=== PATIENT | female | born 1950 | race African-American/Black ===

== ENCOUNTER 2016-12-15 06:54 | Inpatient (IN) | payer OTHER ==
--- NOTE | 2016-12-15 08:03 | PDOC ---
History of Present Illness - General Chief Complaint: Chest Pain Stated Complaint: CHEST PAIN Time Seen by Provider: 12/15/16 07:18 History Source: Patient Exam Limitations: No Limitations Past History - Past Medical History Allergies/Adverse Reactions: Allergies Allergy/AdvReac Type Severity Reaction Status Date / Time No Known Allergies Allergy Verified 12/15/16 07:10 Home Medications: Ambulatory Orders Amlodipine/Valsartan [Amlodipine-Valsartan 5-160 mg] 1 each PO DAILY 12/15/16 Amlodipine/Valsartan [Exforge 5-160 mg Tablet] 1 tab PO DAILY 12/15/16 Amlodipine/Valsartan/Hcthiazid [Pesik-Nwcoa-Hohb 10-320-25 mg] 1 each PO DAILY 12/15/16 Atorvastatin Ca [Lipitor] 20 mg PO HS 12/15/16 Carvedilol [Coreg -] 6.25 mg PO BID 12/15/16 FA/Vit Bcomp,C/Zinc/Vitamin D3 [Dialyvite 800-Ultra D Tablet] 1 each PO DAILY Furosemide [Lasix] 80 mg PO DAILY 12/15/16 Insulin Glargine,Hum.rec.anlog [Lantus Solostar PEN (NF)] 15 units SQ HS Methimazole [Tapazole -] 10 mg PO DAILY 12/15/16 Metoprolol Succinate [Toprol Xl -] 50 mg PO DAILY 12/15/16 Paroxetine HCl [Paxil -] 10 mg PO DAILY 12/15/16 Anemia: Yes (iron deficiency) Asthma: No Cancer: No Hx Myocardial Infarction: No CVA: No Diabetes: Yes (type 2) Disorders: Yes (end stage renal disease/dialysis) HTN: Yes Hypercholesterolemia: Yes HIV: No Other medical history: hyperparathyroidism, vitamin d deficiency Comment:: 12/15/16 08:18 66 year old female with PMH of HTN, HLD, DM, ESRD (M,W,F) presenting with chest pain starting at 5:30 AM. She describes the chest pain as a - Immunization History Immunization Up to Date: Yes - Psycho/Social/Smoking Cessation Hx Suicidal Ideation: No Smoking History: Never smoked Have you smoked in the past 12 months: No Information on smoking cessation initiated: No Hx Alcohol Use: No Drug/Substance Use Hx: No Substance Use Type: None *Physical Exam - Vital Signs Last Vital Signs Temp Pulse Resp BP Pulse Ox 97.6 F 71 18 158/70 100 12/15/16 07:03 12/15/16 07:03 12/15/16 07:03 12/15/16 07:03 12/15/16 07:03
[2016-12-15] MEDS ORDERED: ASPIRIN 81 MG CHEWABLE TABLETS PO ONE (08:12)
[2016-12-15 08:29] LABS: BASOPHIL 1.1 % (0-2.0); EOSINOPHIL 4.7 % (0-4.5); MCH 30.3 pg (25.7-33.7); MCHC 33.2 g/dl (32.0-36.0); MEAN CELL VOLUME 91.4 fl (80-96); MEAN PLT VOLUME 8.3 fl (7.5-11.1); NEUTROPHILS 68.5 % (42.8-82.8); PLATELET COUNT 123 K/MM3 (134-434); RDW 14.7 % (11.6-15.6); WHITE BLOOD COUNT 5.9 K/mm3 (4.0-10.0)
--- NOTE | 2016-12-15 08:40 | PDOC ---
History of Present Illness <Brent Chase - Last Filed: 12/15/16 09:49> - General History Source: Patient Exam Limitations: No Limitations - History of Present Illness Initial Comments: 12/15/16 08:29 66 year old female with PMH of HTN, HLD, DM, ESRD (M,W,F) presenting with chest pain starting at 5:30 AM. She describes the chest pain as an 8/10 non radiating left sided inframammary pain that co-presents with diaphoresis and shortness of breath. She denies nausea, vomiting, cough, or pre-syncopal sensation. The pain was relieved by dialysis cessation (after 20 minutes) and oxygen administration with complete relief noted upon presentation to the ED. Denies current exacerbating factors but it is historically positional. She received no medications for this pain today. Of note, this pain occurred during the beginning of her dialysis session during which she experienced an episode of hypotension to the mid 80s systolic. She was then told by the nurses to come to the ED. She has had this pain in the past , also during dialysis but typically occurring at the end of her sessions and without apparent hypotension. The pain is typically positional and relieved by positional adjustment. She denies nausea , vomiting, diarrhea, palpitations, pre-syncopal sensation, headache, paresthesias, cough, or other sick symptoms. Her PCP is Dr. Cayden Beyer and she takes her medications as scheduled but is currently unsure of the med names or dosages. <Stevie Valerio - Last Filed: 12/15/16 11:23> <Chrissy Pineda - Last Filed: 12/15/16 15:34> - General Chief Complaint: Chest Pain Stated Complaint: CHEST PAIN Time Seen by Provider: 12/15/16 07:18 Past History <Brent Chase - Last Filed: 12/15/16 09:49> - Travel Traveled outside of the country in the last 30 days: No - Past Medical History Anemia: Yes (iron deficiency) Diabetes: Yes (type 2) Disorders: Yes (end stage renal disease/dialysis) Other medical history: hyperparathyroidism, vitamin d deficiency - Immunization History Immunization Up to Date: Yes - Psycho/Social/Smoking Cessation Hx Suicidal Ideation: No Smoking History: Never smoked Have you smoked in the past 12 months: No Information on smoking cessation initiated: No Hx Alcohol Use: No Drug/Substance Use Hx: No Substance Use Type: None <Stevie Valerio - Last Filed: 12/15/16 11:23> <EdwinChrissy - Last Filed: 12/15/16 15:34> - Past Medical History Allergies/Adverse Reactions: Allergies Allergy/AdvReac Type Severity Reaction Status Date / Time No Known Allergies Allergy Verified 12/15/16 07:10 Home Medications: Ambulatory Orders Amlodipine/Valsartan [Amlodipine-Valsartan 5-160 mg] 1 each PO DAILY 12/15/16 Amlodipine/Valsartan [Exforge 5-160 mg Tablet] 1 tab PO DAILY 12/15/16 Amlodipine/Valsartan/Hcthiazid [Zxpch-Nrfoo-Hgsi 10-320-25 mg] 1 each PO DAILY 12/15/16 Atorvastatin Ca [Lipitor] 20 mg PO HS 12/15/16 Carvedilol [Coreg -] 6.25 mg PO BID 12/15/16 FA/Vit Bcomp,C/Zinc/Vitamin D3 [Dialyvite 800-Ultra D Tablet] 1 each PO DAILY Furosemide [Lasix] 80 mg PO DAILY 12/15/16 Insulin Glargine,Hum.rec.anlog [Lantus Solostar PEN (NF)] 15 units SQ HS Methimazole [Tapazole -] 10 mg PO DAILY 12/15/16 Metoprolol Succinate [Toprol Xl -] 50 mg PO DAILY 12/15/16 Paroxetine HCl [Paxil -] 10 mg PO DAILY 12/15/16 Review of Systems - Review of Systems Constitutional: Yes: Diaphoresis. No: Chills, Fever, Loss of Appetite, Malaise , Night Sweats, Weakness HEENTM: No: Eye Pain, Blurred Vision, Tearing, Recent change in vision Respiratory: Yes: Shortness of Breath, SOB with Exertion. No: Cough, Orthopnea Cardiac (ROS): Yes: Chest Pain, Chest Tightness. No: Edema, Irregular Heart Rate, Lightheadedness, Palpitations, Syncope ABD/GI: No: Abdominal Distended, Constipated, Diarrhea, Nausea Musculoskeletal: No: Back Pain, Neck Pain, Joint Stiffness Neurological: No: Headache, Numbness, Unsteady Gait Psychiatric: No: Anxiety, Depression Endocrine: Yes: Unexplained Weight Loss <Stevie Valerio - Last Filed: 12/15/16 11:23> *Physical Exam - Vital Signs Last Vital Signs Temp Pulse Resp BP Pulse Ox 98.6 F 76 16 177/80 98 12/15/16 08:29 12/15/16 08:29 12/15/16 08:29 12/15/16 08:29 12/15/16 08:29 <SalvatoreBrentjustin Henrye - Last Filed: 12/15/16 09:49> - Vital Signs Last Vital Signs Temp Pulse Resp BP Pulse Ox 97.6 F 71 18 158/70 100 12/15/16 07:03 12/15/16 07:03 12/15/16 07:03 12/15/16 07:03 12/15/16 07:03 - Physical Exam General Appearance: Yes: Other (Inno apparent distress) HEENT: positive: Hearing Grossly Normal. negative: Scleral Icterus (R), Scleral Icterus (L), Nasal Congestion, Excessive drooling Neck: negative: Tender, Rigid Respiratory/Chest: positive: Lungs Clear, Normal Breath Sounds. negative: Chest Tender, Respiratory Distress, Accessory Muscle Use, Labored Respiration, Rhonchi, Wheezing Cardiovascular: positive: Regular Rhythm, Regular Rate, S1, S2, Murmur ( Holosystolic murmur), Systolic Murmur, Other. negative: Edema, JVD, Bradycardia , Tachycardia Gastrointestinal/Abdominal: positive: Normal Bowel Sounds, Flat, Soft. negative : Tender, Organomegaly, Pulsatile Mass, Increased Bowel Sounds, Decreased BS Extremity: positive: Normal Capillary Refill. negative: Tender, Pedal Edema, Swelling Neurologic: positive: Fully Oriented, Alert, Normal Mood/Affect <Jordan Valerionohemy - Last Filed: 12/15/16 11:23> - Vital Signs Last Vital Signs Temp Pulse Resp BP Pulse Ox 98.2 F 72 16 188/69 97 12/15/16 10:54 12/15/16 10:54 12/15/16 10:54 12/15/16 10:54 12/15/16 10:54 <Chrissy Pineda - Last Filed: 12/15/16 15:34> Heart Score/ECG Review - History History: Moderately suspicious - Electrocardiogram EKG: Normal - Age Age: >/= 65 - Risk Factors Risk Factors Heart Score: Yes Hx Hypercholesterolemia, Yes Hx Hypertension, Yes Hx Diabetes, Yes Smoking History Based on the list above the patient has:: >/=3 risk factors or Hx atherosclerotic disease - Troponin Troponin: </= normal limit (ECG not showing an concern for ST elevation or abnormal pathology) - Score Heart Score - Total: 5 <Stevie Valerio - Last Filed: 12/15/16 11:23> ED Treatment Course - LABORATORY CBC & Chemistry Diagram: 12/15/16 08:23 12/15/16 08:23 - ADDITIONAL ORDERS Additional order review: Laboratory Results 12/15/16 12/15/16 08:23 08:23 Sodium 140 Potassium 4.7 Chloride 102 Carbon Dioxide 24 Anion Gap 14 BUN 67 H D Creatinine 10.6 H* D Creat Clearance w eGFR 3.63 Random Glucose 149 H Lactic Acid 0.8 Calcium 8.8 Total Bilirubin 0.3 AST 34 ALT 48 Alkaline Phosphatase 139 H Creatine Kinase 76 Troponin I 0.02 Total Protein 7.1 Albumin 3.7 12/15/16 08:23 RBC 3.73 MCV 91.4 MCHC 33.2 RDW 14.7 MPV 8.3 Neutrophils % 68.5 Lymphocytes % 19.5 Monocytes % 6.2 Eosinophils % 4.7 H Basophils % 1.1 - Medications Given in the ED: ED Medications Discontinued Medications Generic Name Dose Route Start Last Admin Trade Name Freq PRN Reason Stop Dose Admin Aspirin 324 mg 12/15/16 08:12 12/15/16 08:24 Asa - PO 12/15/16 08:13 324 mg ONCE ONE Administration <Brent Chase - Last Filed: 12/15/16 09:49> - LABORATORY CBC & Chemistry Diagram: 12/15/16 08:23 12/15/16 08:23 - Medications Given in the ED: ED Medications Discontinued Medications Generic Name Dose Route Start Last Admin Trade Name Freq PRN Reason Stop Dose Admin Aspirin 324 mg 12/15/16 08:12 12/15/16 08:24 Asa - PO 12/15/16 08:13 324 mg ONCE ONE Administration <Stevie Valerio - Last Filed: 12/15/16 11:23> - LABORATORY CBC & Chemistry Diagram: 12/15/16 08:23 12/15/16 08:23 - ADDITIONAL ORDERS Additional order review: Laboratory Results 12/15/16 12/15/16 08:23 08:23 Sodium 140 Potassium 4.7 Chloride 102 Carbon Dioxide 24 Anion Gap 14 BUN 67 H D Creatinine 10.6 H* D Creat Clearance w eGFR 3.63 Random Glucose 149 H Lactic Acid 0.8 Calcium 8.8 Total Bilirubin 0.3 AST 34 ALT 48 Alkaline Phosphatase 139 H Creatine Kinase 76 Troponin I 0.02 Total Protein 7.1 Albumin 3.7 12/15/16 08:23 RBC 3.73 MCV 91.4 MCHC 33.2 RDW 14.7 MPV 8.3 Neutrophils % 68.5 Lymphocytes % 19.5 Monocytes % 6.2 Eosinophils % 4.7 H Basophils % 1.1 - RADIOLOGY Radiology Studies Ordered: Category Date Time Status CHEST X-RAY PORTABLE* [RAD] Stat Radiology 12/15/16 08:11 Completed - Medications Given in the ED: ED Medications Discontinued Medications Generic Name Dose Route Start Last Admin Trade Name Freq PRN Reason Stop Dose Admin Aspirin 324 mg 12/15/16 08:12 12/15/16 08:24 Asa - PO 12/15/16 08:13 324 mg ONCE ONE Administration <Chrissy Pineda - Last Filed: 12/15/16 15:34> Medical Decision Making - Medical Decision Making 12/15/16 09:49 Dr. Meeks who is covering for Dr. Renner was consulted regarding the patient at 9:50am [phone] <Brent Chase - Last Filed: 12/15/16 09:49> - Critical Care Time Total Critical Care Time (minutes): 60 Critical Care Statement: The care of this patient involved high complexity decision making to prevent further life threatening deterioration of the patient 's condition and/or to evalute & treat vital organ system(s) failure or risk of failure. - Medical Decision Making 12/15/16 10:55 Patient presented with chest pain concerning for ACS (SOB with diaphoresis) however non radiating, without EKG changes, one negative Troponin, and resolution of pain with cessation of dialysis and administration of oxygen. She was SATing well on RA with normal HR and RR. Her labs were WNL with exception of her creatinine but this is expected to be high. She hypertensive to 190s without symptoms most likely secondary to abbreviated dialysis session. After a conversation with Dr. Meeks, the decision was made to admit the patient with a cardiology consult for her chest pain. Her pressure remained high to 190s systolic by transfer but the patient was stable. She will need dialysis after transfer in order to obtain pressure control. 12/15/16 11:24 <Stevie Valerio - Last Filed: 12/15/16 11:23> - Medical Decision Making 12/15/16 15:32 Pt preesnts to the ED complaining of chest pain and hypotension on HD. Multiple risk factors for cardiovascular disease. EKG shows no evidence of acute ischemia, patient is asymptomatic in the ED, but given risk factors, will admit for r/o ACS. <Chrissy Pineda - Last Filed: 12/15/16 15:34> *DC/Admit/Observation/Transfer <Brent Chase - Last Filed: 12/15/16 09:49> - Discharge Dispostion Admit: Yes Decision to Admit order Date/Time: 12/15/16 09:57 12/15/16 10:51 For cardiac event rule out - Attestations Physician Attestion: 12/15/16 10:55 I, Dr. Stevie Valerio, attest that this document has been prepared under my direction and personally reviewed by me in its entirety. I further attest, that it accurately reflects all work, treatment, procedures and medical decision -making performed by me. <Stevie Valerio - Last Filed: 12/15/16 11:23> <Chrissy Pineda - Last Filed: 12/15/16 15:34> Diagnosis at time of Disposition: Chest pain Qualifiers: Chest pain type: precordial pain Qualified Code(s): R07.2 - Precordial pain - Discharge Dispostion Condition at time of disposition: Stable
[2016-12-15 08:50] LABS: ALBUMIN 3.7 g/dl (3.4-5.0); ALK PHOS 139 U/L (45-117); ANION GAP 14 (8-16); BILIRUBIN,TOTAL 0.3 mg/dL (0.2-1.0); CALCIUM 8.8 mg/dL (8.5-10.1); CO2 24 mmol/L (21-32); GLUCOSE,RANDOM 149 mg/dL (74-106); SGOT/AST 34 U/L (15-37); SGPT/ALT 48 U/L (12-78); TOT PROT 7.1 g/dl (6.4-8.2)
[2016-12-15 08:55] LABS: TROPONIN I 0.02 ng/ml (0.00-0.05)
--- NOTE | 2016-12-15 08:56 | PDOC ---
Attending Attestation - Resident Resident Name: Stevie Valerio - ED Attending Attestation I have performed the following: I have examined & evaluated the patient, Exceptions are as noted - HPI HPI: 12/15/16 08:50 pt presents to the ED with the acute onset of chest pain that began while on dialysis. Patient often has chest pain while on HD, but today her pain occurred toward the beginning instead of the end and was accompanied by hypotension. Currently chest pain free. - Physicial Exam PE: 12/15/16 08:56 Welll appearing with essentially normal exam. - Medical Decision Making 12/15/16 09:00 Given that her chest pain occurred early in HD and was accompanied by shortness of breath, I am concerned about possible NSTEMI or unstable angina. EKG shows no evidence of ischemia, but HEART score is 5 . Will check labs and cardiac enzymes, likely admit to observation for serial cardiac enzymes. Patient did not complete HD and will need HD as inpatient.
[2016-12-15 08:59] LABS: CREATININE 10.6 mg/dL (0.55-1.02)
--- NOTE | 2016-12-15 10:22 | EKG ---
Test Reason : Blood Pressure : / mmHG Vent. Rate : 075 BPM Atrial Rate : 075 BPM P-R Int : 176 ms QRS Dur : 084 ms QT Int : 400 ms P-R-T Axes : 066 015 037 degrees QTc Int : 446 ms NORMAL SINUS RHYTHM MINIMAL VOLTAGE CRITERIA FOR LVH, MAY BE NORMAL VARIANT BORDERLINE ECG NO PREVIOUS ECGS AVAILABLE Confirmed by KARRI WRIGHT MD ([id number]) on 12/15/2016 10:22:11 AM Referred By: Confirmed By:KARRI WRIGHT MD
--- NOTE | 2016-12-15 11:48 | CON.CARD ---
Consult Consult Specialty:: Cardiology Referred by:: Harjit Meeks MD Reason for Consultation:: Chest pain - History of Present Illness Chief Complaint: Chest pain History of Present Illness: 66 year old female with PMH of HTN, HLD, DM, ESRD (M,W,F) presented with chest pain characterized as starting at 5:30 AM. She describes the chest pain as an 8/ 10 non radiating left sided inframammary burning pain that co-presents with diaphoresis and shortness of breath. She denies nausea, vomiting, cough, or pre- syncopal, true syncope, palpitations, orthopnea, PND or LE edema. The pain was relieved by dialysis cessation (after 20 minutes) and oxygen administration with complete relief noted upon presentation to the ED. Denies current exacerbating factors but it is historically positional. Of note, this pain occurred during the beginning of her dialysis session during which she experienced an episode of hypotension to the mid 80s systolic and HD was interrupted. She was then told by the nurses to come to the ED. She has had this pain in the past, also during dialysis but typically occurring at the end of her sessions and without apparent hypotension. The pain is typically positional and relieved by positional adjustment. She denies nausea, vomiting, diarrhea, palpitations, pre-syncopal sensation, headache, paresthesias, cough, or other sick symptoms. Her PCP is Dr. Cayden Beyer and she takes her medications as scheduled but is currently unsure of the med names or dosages. - History Source History Provided By: Patient Limitations to Obtaining History: No Limitations - Past Medical History Cardio/Vascular: Yes: HTN Renal/: Yes: Hemodialysis - Alcohol/Substance Use Hx Alcohol Use: No - Smoking History Smoking history: Never smoked Have you smoked in the past 12 months: No Home Medications - Allergies Allergies/Adverse Reactions: Allergies Allergy/AdvReac Type Severity Reaction Status Date / Time No Known Allergies Allergy Verified 12/15/16 07:10 - Home Medications Home Medications: Ambulatory Orders Amlodipine/Valsartan [Amlodipine-Valsartan 5-160 mg] 1 each PO DAILY 12/15/16 Amlodipine/Valsartan [Exforge 5-160 mg Tablet] 1 tab PO DAILY 12/15/16 Amlodipine/Valsartan/Hcthiazid [Ntemt-Yrazt-Rphn 10-320-25 mg] 1 each PO DAILY 12/15/16 Atorvastatin Ca [Lipitor] 20 mg PO HS 12/15/16 Carvedilol [Coreg -] 6.25 mg PO BID 12/15/16 FA/Vit Bcomp,C/Zinc/Vitamin D3 [Dialyvite 800-Ultra D Tablet] 1 each PO DAILY Furosemide [Lasix] 80 mg PO DAILY 12/15/16 Insulin Glargine,Hum.rec.anlog [Lantus Solostar PEN (NF)] 15 units SQ HS Methimazole [Tapazole -] 10 mg PO DAILY 12/15/16 Metoprolol Succinate [Toprol Xl -] 50 mg PO DAILY 12/15/16 Paroxetine HCl [Paxil -] 10 mg PO DAILY 12/15/16 Review of Systems - Review of Systems Cardiovascular: reports: Chest Pain, Shortness of Breath Vital Signs: Vital Signs Temperature 98.2 F 12/15/16 10:54 Pulse Rate 72 12/15/16 10:54 Respiratory Rate 16 12/15/16 10:54 Blood Pressure 188/69 12/15/16 10:54 O2 Sat by Pulse Oximetry (%) 97 12/15/16 10:54 Constitutional: Yes: No Distress, Calm Neck: Yes: Supple Respiratory: Yes: Regular, CTA Bilaterally Gastrointestinal: Yes: Normal Bowel Sounds, Soft Cardiovascular: Yes: Regular Rate and Rhythm Heart Sounds: Yes: S1, S2 Murmur: Yes: Systolic Murmur, Grade 1 Edema: No - Other Data NSR @ 75 min criteria LVH Imaging - Results Chest X-ray: Report Reviewed (Central congestion) Problem List - Problems (1) Chest pain Code(s): R07.9 - CHEST PAIN, UNSPECIFIED Qualifiers: Chest pain type: precordial pain Qualified Code(s): R07.2 - Precordial pain (2) Hypertensive urgency Code(s): I16.0 - HYPERTENSIVE URGENCY (3) Hypertensive cardiomyopathy Code(s): I11.9 - HYPERTENSIVE HEART DISEASE WITHOUT HEART FAILURE I43 - CARDIOMYOPATHY IN DISEASES CLASSIFIED ELSEWHERE Qualifiers: Heart failure presence: with heart failure Qualified Code(s): I11.0 - Hypertensive heart disease with heart failure; I43 - Cardiomyopathy in diseases classified elsewhere (4) Hyperlipidemia associated with type 2 diabetes mellitus Code(s): E11.69 - TYPE 2 DIABETES MELLITUS WITH OTHER SPECIFIED COMPLICATION E78.5 - HYPERLIPIDEMIA, UNSPECIFIED (5) Type 2 diabetes mellitus Code(s): E11.9 - TYPE 2 DIABETES MELLITUS WITHOUT COMPLICATIONS Qualifiers: Diabetes mellitus complication status: with kidney complications Diabetes mellitus 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 Chest pain, dyspnea referable to acute on chronic diastolic failure, r/o CAD 2. Hypertensive urgency 3. Hyperlipidemia 4. Insulin-dependent Type 2 DM 5. Hyperthyroidism P:1. Ruling out for [place], check TSH, lipid panel, Ha1c 2. Echo to assess ventricular and valve fxn 3. Persantine myoview r/o CAD 4. Continue Exforge 5/160 qd, Lipitor 20 qhs, Lasix 80 qd, carvedilol 6.25 bid as hemodynamics tolerate 5. Thank you for consultative opportunity
[2016-12-15] MEDS: METHIMAZOLE 10 MG TABLET (FP) PO SCH (13:11)
[2016-12-15] MEDS: FUROSEMIDE 40 MG TABLET (FP) PO SCH (13:11)
[2016-12-15] MEDS: amLODIPine BESYLATE 5 MG TABLET (FP) PO SCH (13:11)
[2016-12-15] MEDS: CARVEDILOL 6.25 MG TABLET (FP) PO SCH ×2 (13:11→21:16)
[2016-12-15] MEDS: VALSARTAN 160 MG TABLET (UD) PO SCH (13:12)
--- NOTE | 2016-12-15 14:08 | CONSULT ---
Consultation: REQUESTING PROVIDER: Kelvin CONSULT REQUEST: We have been asked to medically evaluate this patient for CKD on dialysis HISTORY OF PRESENT ILLNESS: 66 yo F with pmhx of IDDM, ESRD(HD MWF), HTN, HLD, and hyperthyroidism presents today sent from dialysis after a near chest pain and hypotension. Pain started after the initiation of HD today. She describes the chest pain as non- radiating 8/10 left sided burning pain that accompained by diaphoresis, shortness of breath, and hypotension to the mid 80s systolic. No exacerbating factors, but in past similar pain relieved with positional change. She denies nausea, vomiting, diarrhea, palpitations, pre-syncopal sensation, headache, paresthesias, cough, or other sick symptoms. Allergies: NKDA PMHx: IDDM, ESRD (HD MWF), hyperthyroid PShx: partial hysterctomy 1992 FHx:father of aneurysm and mother at 94 of old age. Social: 40 pack year history of smoking currently smokes 5 cigs/day, Drinks socially , and no drug use. REVIEW OF SYSTEMS: CONSTITUTIONAL: Absent: fever, chills, diaphoresis, generalized weakness, malaise, loss of appetite, weight change HEENT: Absent: rhinorrhea, nasal congestion, throat pain, throat swelling, difficulty swallowing, mouth swelling, ear pain, eye pain, visual changes CARDIOVASCULAR: chest pain, palpitations Absent: syncope, irregular heart rate, lightheadedness, peripheral edema RESPIRATORY: shortness of breath Absent: cough, , dyspnea with exertion, orthopnea, wheezing, stridor, hemoptysis GASTROINTESTINAL: Absent: abdominal pain, abdominal distension, nausea, vomiting, diarrhea, constipation, melena, hematochezia GENITOURINARY: Absent: dysuria, frequency, urgency, hesitancy, hematuria, flank pain, genital pain MUSCULOSKELETAL: Absent: myalgia, arthralgia, joint swelling, back pain, neck pain SKIN: Absent: rash, itching, pallor HEMATOLOGIC/IMMUNOLOGIC: Absent: easy bleeding, easy bruising, lymphadenopathy, frequent infections ENDOCRINE: Absent: unexplained weight gain, unexplained weight loss, heat intolerance, cold intolerance NEUROLOGIC: Absent: headache, focal weakness or paresthesias, dizziness, unsteady gait, seizure, mental status changes, bladder or bowel incontinence PSYCHIATRIC: Absent: anxiety, depression, suicidal or homicidal ideation, hallucinations. PHYSICAL EXAMINATION Vital Signs - 24 hr 12/15/16 10:54 Temperature 98.2 F Pulse Rate [ 72 Left Apical] Respiratory 16 Rate Blood Pressure 188/69 [Right Arm] O2 Sat by Pulse 97 Oximetry (%) GENERAL: AAO x3 , NAD HEAD: NC/AT EYES: PERRLA, EOMI, sclera anicteric, conjunctiva clear. No lid lag. EARS, NOSE, THROAT: Moist mucous membranes. NECK:supple, no JVD LUNGS: CTAB, No wheezing or rales. HEART: RRR, S1S2, No M/G/R ABDOMEN: soft,obese, NT, ND, BS(+), no masses MUSCULOSKELETAL: Normal range of motion at all joints. No bony deformities or tenderness. No CVA tenderness. UPPER EXTREMITIES: 2+ pulses, left arm HD fistula, warm, well-perfused. No cyanosis. No clubbing. Cap refill <2 seconds. No peripheral edema. LOWER EXTREMITIES: 2+ pulses, warm, well-perfused. No calf tenderness. No peripheral edema. Active Medications Generic Name Dose Route Start Last Admin Trade Name Freq PRN Reason Stop Dose Admin Amlodipine Besylate 5 mg 12/15/16 12:00 12/15/16 13:11 Norvasc - PO 5 mg DAILY ANDRÉS Administration Aspirin 81 mg 12/16/16 10:00 Asa - PO DAILY ANDRÉS Atorvastatin Calcium 20 mg 12/15/16 22:00 Lipitor - PO HS ANDRÉS Carvedilol 6.25 mg 12/15/16 12:00 12/15/16 13:11 Coreg - PO 6.25 mg BID ANDRÉS Administration Furosemide 80 mg 12/15/16 12:00 12/15/16 13:11 Lasix - PO 80 mg DAILY ANDRÉS Administration Methimazole 10 mg 12/15/16 12:00 12/15/16 13:11 Tapazole - PO 10 mg DAILY ANDRÉS Administration Paroxetine HCl 10 mg 12/16/16 10:00 Paxil - PO DAILY ANDRÉS Valsartan 160 mg 12/15/16 12:00 12/15/16 13:12 Diovan - PO 160 mg DAILY ANDRÉS Administration ASSESSMENT/PLAN: 66 yo F with PMhx of IDDM and ESRD admitted for chest pain r/o and hypotension. Dispo: We will continue to follow the patient. Thank you for this consultative opportunity. Problem List - Problems (1) End stage renal disease on dialysis due to type 2 diabetes mellitus Assessment/Plan: * Will be dialyzed tomorrow. * avoid nephrotoxin * renal dose meds. * repeat labs in AM (2) HTN (hypertension) Assessment/Plan: * Amlodipine Besylate (Norvasc -) 5 mg PO DAILY (3) Chest pain Assessment/Plan: * EKG NSR without st or t wave changes * Tele monitoring * cardio consulted * trend trops * Echo pending. (4) Type 2 diabetes mellitus Assessment/Plan: * ADA diet * BGM ACHS * NISS AC (5) Hyperthyroidism Assessment/Plan: * Methimazole (Tapazole -) 10 mg PO DAILY Visit type - Emergency Visit Emergency Visit: Yes ED Registration Date: 12/15/16 Care time: The patient presented to the Emergency Department on the above date and was hospitalized for further evaluation of their emergent condition. - New Patient This patient is new to me today: Yes Date on this admission: 12/15/16 - Critical Care Critical Care patient: No
--- NOTE | 2016-12-15 16:17 | PN ---
Teaching Attending Note Name of Resident: Akhil Onofre (Nephrology) ATTENDING PHYSICIAN STATEMENT I saw and evaluated the patient. I reviewed the resident's note and discussed the case with the resident. I agree with the resident's findings and plan as documented. Nephrology Consult Please see note prepared by resident. Pt is a 66 year old female that was sent in from HD this morning for chest tightness. She was found to have a blood pressure of 89/50 and pulse was 115 in HD. She is now alert and oriented. She denies chest pain. Her blood pressure improved. She was recently started on carvedilol. pmhx esrd HTN dm pshx av fistula soc hx ex smoker ros neg aside from history Current Medications Generic Name Dose Route Start Last Admin Trade Name Freq PRN Reason Stop Dose Admin Amlodipine Besylate 5 mg 12/15/16 12:00 12/15/16 13:11 Norvasc - PO 5 mg DAILY ANDRÉS Administration Aspirin 81 mg 12/16/16 10:00 Asa - PO DAILY ANDRÉS Atorvastatin Calcium 20 mg 12/15/16 22:00 Lipitor - PO HS ANDRÉS Carvedilol 6.25 mg 12/15/16 12:00 12/15/16 13:11 Coreg - PO 6.25 mg BID ANDRÉS Administration Furosemide 80 mg 12/15/16 12:00 12/15/16 13:11 Lasix - PO 80 mg DAILY ANDRÉS Administration Pantoprazole Sodium 100 mls @ 200 mls/hr 12/15/16 16:00 Protonix 40mg Ivpb (Pre-Docked) IVPB DAILY ANDRÉS Insulin Aspart 1 vial 12/15/16 16:30 Novolog Vial Sliding Scale - SQ ACHS [facility] Protocol Insulin Detemir 15 units 12/15/16 22:00 Levemir Vial SQ HS ANDRÉS Methimazole 10 mg 12/15/16 12:00 12/15/16 13:11 Tapazole - PO 10 mg DAILY ANDRÉS Administration Paroxetine HCl 10 mg 12/16/16 10:00 Paxil - PO DAILY ANDRÉS Simethicone 80 mg 12/15/16 15:44 Mylicon - PO Q4H PRN GAS Valsartan 160 mg 12/15/16 12:00 12/15/16 13:12 Diovan - PO 160 mg DAILY ANDRÉS Administration Last Vital Signs Temp Pulse Resp BP Pulse Ox 98.5 F 69 16 193/76 97 12/15/16 15:56 12/15/16 15:56 12/15/16 15:56 12/15/16 15:56 12/15/16 10:54 cardio s1s2 reg pulm clear GI soft ext neg edema neuro awake and alert Impression 1. ESRD 2. chest pain 3. DM 4. HTN 5. hyperlipidemia Plan - cardio eval - will arrange for HD in am - monitor blood pressure closely - will follow - HD prescription AVF, 2 K bath, 3 hrs, 450 abf, 15 gauge needles, epogen 1800, hectorol 5 mcg, venofer 50 q week ASSESSMENT AND PLAN:
[2016-12-15 17:20] VITALS: BMI 25.7
--- NOTE | 2016-12-15 17:45 | HP ---
Admitting History and Physical - Primary Care Physician PCP: Harjit Meeks - Admission Chief Complaint: CHEST PAIN History of Present Illness: 66 year old female with PMH of HTN, HLD, DM, ESRD (M,W,F) presenting with chest pain starting at 5:30 AM. She describes the chest pain as an 8/10 non radiating left sided inframammary pain that co-presents with diaphoresis and shortness of breath. She denies nausea, vomiting, cough, or pre-syncopal sensation. The pain was relieved by dialysis cessation (after 20 minutes) and oxygen administration with complete relief noted upon presentation to the ED. Denies current exacerbating factors but it is historically positional. She received no medications for this pain today. Of note, this pain occurred during the beginning of her dialysis session during which she experienced an episode of hypotension to the mid 80s systolic. She was then told by the nurses to come to the ED. She has had this pain in the past , also during dialysis but typically occurring at the end of her sessions and without apparent hypotension. The pain is typically positional and relieved by positional adjustment. She denies nausea , vomiting, diarrhea, palpitations, pre-syncopal sensation, headache, paresthesias, cough, or other sick symptoms. Her PCP is Dr. Cayden Beyer and she takes her medications as scheduled but is currently unsure of the med names or dosages. History Source: Medical Record Limitations to Obtaining History: Physical Impairment - Past Medical History Cardiovascular: Yes: HTN Renal/: Yes: Hemodialysis - Smoking History Smoking history: Current every day smoker Have you smoked in the past 12 months: Yes Aproximately how many cigarettes per day: 7 - Alcohol/Substance Use Hx Alcohol Use: No Home Medications - Allergies Allergies/Adverse Reactions: Allergies Allergy/AdvReac Type Severity Reaction Status Date / Time No Known Allergies Allergy Verified 12/15/16 07:10 - Home Medications Home Medications: Ambulatory Orders Amlodipine/Valsartan [Amlodipine-Valsartan 5-160 mg] 1 each PO DAILY 12/15/16 Amlodipine/Valsartan [Exforge 5-160 mg Tablet] 1 tab PO DAILY 12/15/16 Amlodipine/Valsartan/Hcthiazid [Bgzkg-Lzpye-Ndrk 10-320-25 mg] 1 each PO DAILY 12/15/16 Atorvastatin Ca [Lipitor] 20 mg PO HS 12/15/16 Carvedilol [Coreg -] 6.25 mg PO BID 12/15/16 FA/Vit Bcomp,C/Zinc/Vitamin D3 [Dialyvite 800-Ultra D Tablet] 1 each PO DAILY Furosemide [Lasix] 80 mg PO DAILY 12/15/16 Insulin Glargine,Hum.rec.anlog [Lantus Solostar PEN (NF)] 15 units SQ HS Methimazole [Tapazole -] 10 mg PO DAILY 12/15/16 Metoprolol Succinate [Toprol Xl -] 50 mg PO DAILY 12/15/16 Paroxetine HCl [Paxil -] 10 mg PO DAILY 12/15/16 Review of Systems - Review of Systems Constitutional: reports: Weakness Eyes: reports: No Symptoms HENT: reports: No Symptoms Neck: reports: No Symptoms Cardiovascular: reports: Chest Pain, Shortness of Breath Respiratory: reports: No Symptoms Gastrointestinal: reports: Nausea, Other Genitourinary: reports: Other Musculoskeletal: reports: Muscle Weakness Integumentary: reports: No Symptoms Neurological: reports: Pre-Existing Deficit Endocrine: reports: No Symptoms Hematology/Lymphatic: reports: No Symptoms Psychiatric: reports: No Symptoms Physical Examination Vital Signs: Vital Signs Temperature 97.8 F 12/15/16 17:12 Pulse Rate 76 12/15/16 17:12 Respiratory Rate 18 12/15/16 17:12 Blood Pressure 190/88 12/15/16 17:12 O2 Sat by Pulse Oximetry (%) 97 12/15/16 17:22 Constitutional: Yes: Mild Distress Eyes: Yes: WNL HENT: Yes: WNL Neck: Yes: WNL Cardiovascular: Yes: WNL Respiratory: Yes: WNL Gastrointestinal: Yes: WNL Musculoskeletal: Yes: Muscle Weakness Edema: No Peripheral Pulses WNL: No Integumentary: Yes: WNL Wound/Incision: Yes: Clean/Dry Neurological: Yes: Pre-Existing Deficit ...Motor Strength: LLE, RLE Psychiatric: Yes: Other Imaging - Results Chest X-ray: Report Reviewed Problem List - Problems (1) Chest pain Code(s): R07.9 - CHEST PAIN, UNSPECIFIED Qualifiers: Chest pain type: precordial pain Qualified Code(s): R07.2 - Precordial pain (2) End stage renal disease on dialysis due to type 2 diabetes mellitus Code(s): E11.22 - TYPE 2 DIABETES MELLITUS W DIABETIC CHRONIC KIDNEY DISEASE N18.6 - END STAGE RENAL DISEASE Z99.2 - DEPENDENCE ON RENAL DIALYSIS (3) HTN (hypertension) Code(s): I10 - ESSENTIAL (PRIMARY) HYPERTENSION Qualifiers: Hypertension type: essential hypertension Qualified Code(s): I10 - Essential (primary) hypertension (4) Hyperlipidemia associated with type 2 diabetes mellitus Code(s): E11.69 - TYPE 2 DIABETES MELLITUS WITH OTHER SPECIFIED COMPLICATION E78.5 - HYPERLIPIDEMIA, UNSPECIFIED (5) Type 2 diabetes mellitus Code(s): E11.9 - TYPE 2 DIABETES MELLITUS WITHOUT COMPLICATIONS Qualifiers: Diabetes mellitus complication status: with kidney complications Diabetes mellitus half-way insulin use: with terminologist use Chronic kidney disease stage: on chronic dialysis Assessment/Plan CARDIAC ENZYMES CARDIOLOGY AND NEPHROLOGY EVAL ECHO ORDERED LIPID AND A1C PENDING SSI ADA
[2016-12-15] MEDS: PANTOPRAZOLE SODIUM 100 ML IVPB SCH (17:51)
[2016-12-15] MEDS: INSULIN SLIDING SCALE (NOVOLOG) 1 VIAL SQ SCH ×2 (17:52→21:22)
[2016-12-15] MEDS: ATORVASTATIN CA 20 MG TABLET (FP) PO SCH (21:16)
[2016-12-15] MEDS: INSULIN DETEMIR 100 UNITS/ML MDV SQ SCH (21:22)
[2016-12-16] MEDS: INSULIN SLIDING SCALE (NOVOLOG) 1 VIAL SQ SCH ×4 (06:15→21:42)
[2016-12-16 08:20] LABS: TROPONIN I 0.04 ng/ml (0.00-0.05)
[2016-12-16 08:42] LABS: THYROID STIMULATING HORMONE 1.23 uIU/ml (0.358-3.74)
[2016-12-16] MEDS ORDERED: EPOETIN ALFA 2,000 UNITS/1 ML VIAL IVPUSH ONE (09:15)
[2016-12-16] MEDS ORDERED: PARICALCITOL 5 MCG/ML VIAL IVPUSH ONE (09:30)
[2016-12-16] MEDS: VALSARTAN 160 MG TABLET (UD) PO SCH (09:36)
[2016-12-16] MEDS: amLODIPine BESYLATE 5 MG TABLET (FP) PO SCH (09:36)
[2016-12-16] MEDS: PARoxetine HCL 10 MG TABLET (FP) PO SCH (10:00)
--- NOTE | 2016-12-16 10:22 | PN ---
Progress Note (short form) - Note Progress Note: PULMONARY CONSULTATION DICTATED 12/16/16 IMP CHEST PAIN SYNDROME ? MUSCULOSKELETAL HYPERTENSIVE URGENCY ESRD DM LIKELY COPD SMOKER PLAN HD PER RENAL ANALGESICS BP CONTROL CHEST CT SMOKING CESSATION COUNSELED DR ISAACS Problem List - Problems (1) Chest pain Code(s): R07.9 - CHEST PAIN, UNSPECIFIED Qualifiers: Chest pain type: precordial pain Qualified Code(s): R07.2 - Precordial pain (2) HTN (hypertension) Code(s): I10 - ESSENTIAL (PRIMARY) HYPERTENSION Qualifiers: Hypertension type: essential hypertension Qualified Code(s): I10 - Essential (primary) hypertension (3) Hyperlipidemia associated with type 2 diabetes mellitus Code(s): E11.69 - TYPE 2 DIABETES MELLITUS WITH OTHER SPECIFIED COMPLICATION E78.5 - HYPERLIPIDEMIA, UNSPECIFIED (4) Hypertensive urgency Code(s): I16.0 - HYPERTENSIVE URGENCY (5) Hyperthyroidism Code(s): E05.90 - THYROTOXICOSIS, UNSP WITHOUT THYROTOXIC CRISIS OR STORM (6) Type 2 diabetes mellitus Code(s): E11.9 - TYPE 2 DIABETES MELLITUS WITHOUT COMPLICATIONS Qualifiers: Diabetes mellitus complication status: with kidney complications Diabetes mellitus termite control servicer insulin use: with termite control servicer use Chronic kidney disease stage: on chronic dialysis (7) Tobacco abuse Code(s): Z72.0 - TOBACCO USE (8) Tobacco abuse counseling Code(s): Z71.6 - TOBACCO ABUSE COUNSELING
--- NOTE | 2016-12-16 10:28 | PN ---
Progress Note, Physician History of Present Illness: Reports left sided reproducible chest wall tenderness, denies dyspnea, BP remains elevated. - Current Medication List Current Medications: Active Medications Amlodipine Besylate (Norvasc -) 5 mg PO DAILY [facility] Last Admin: 12/16/16 09:36 Dose: 5 mg Aspirin (Asa -) 81 mg PO DAILY [facility] Atorvastatin Calcium (Lipitor -) 20 mg PO HS [facility] Last Admin: 12/15/16 21:16 Dose: 20 mg Carvedilol (Coreg -) 6.25 mg PO BID [facility] Last Admin: 12/15/16 21:16 Dose: 6.25 mg Furosemide (Lasix -) 80 mg PO DAILY [facility] Last Admin: 12/15/16 13:11 Dose: 80 mg Pantoprazole Sodium (Protonix 40mg Ivpb (Pre-Docked)) 100 mls @ 200 mls/hr IVPB DAILY [facility] Last Admin: 12/15/16 17:51 Dose: 200 mls/hr Insulin Aspart (Novolog Vial Sliding Scale -) 1 vial SQ [facility] PRN Reason: Protocol Last Admin: 12/16/16 06:15 Dose: Not Given Insulin Detemir (Levemir Vial) 15 units SQ [facility] Last Admin: 12/15/16 21:22 Dose: Not Given Methimazole (Tapazole -) 10 mg PO DAILY [facility] Last Admin: 12/15/16 13:11 Dose: 10 mg Paroxetine HCl (Paxil -) 10 mg PO DAILY [facility] Simethicone (Mylicon -) 80 mg PO Q4H PRN PRN Reason: GAS Valsartan (Diovan -) 160 mg PO DAILY [facility] Last Admin: 12/16/16 09:36 Dose: 160 mg - Objective Vital Signs: Vital Signs Temperature 97.8 F 12/16/16 06:00 Pulse Rate 68 12/16/16 09:40 Respiratory Rate 18 12/16/16 09:40 Blood Pressure 209/96 12/16/16 09:40 O2 Sat by Pulse Oximetry (%) 97 12/15/16 21:00 Constitutional: Yes: No Distress, Calm Neck: Yes: Supple Cardiovascular: Yes: Regular Rate and Rhythm Respiratory: Yes: Regular, Diminished, Other (Reproducible chest wall tenderness ) Gastrointestinal: Yes: Normal Bowel Sounds, Soft Edema: No Problem List - Problems (1) Chest pain Code(s): R07.9 - CHEST PAIN, UNSPECIFIED Qualifiers: Chest pain type: precordial pain Qualified Code(s): R07.2 - Precordial pain (2) Hypertensive urgency Code(s): I16.0 - HYPERTENSIVE URGENCY (3) Hypertensive cardiomyopathy Code(s): I11.9 - HYPERTENSIVE HEART DISEASE WITHOUT HEART FAILURE I43 - CARDIOMYOPATHY IN DISEASES CLASSIFIED ELSEWHERE Qualifiers: Heart failure presence: with heart failure Qualified Code(s): I11.0 - Hypertensive heart disease with heart failure; I43 - Cardiomyopathy in diseases classified elsewhere (4) Hyperlipidemia associated with type 2 diabetes mellitus Code(s): E11.69 - TYPE 2 DIABETES MELLITUS WITH OTHER SPECIFIED COMPLICATION E78.5 - HYPERLIPIDEMIA, UNSPECIFIED (5) Type 2 diabetes mellitus Code(s): E11.9 - TYPE 2 DIABETES MELLITUS WITHOUT COMPLICATIONS Qualifiers: Diabetes mellitus complication status: with kidney complications Diabetes mellitus termite exterminator helper insulin use: with penitentiary use Chronic kidney disease stage: on chronic dialysis (6) Hyperthyroidism Code(s): E05.90 - THYROTOXICOSIS, UNSP WITHOUT THYROTOXIC CRISIS OR STORM (7) End stage renal disease on dialysis due to type 2 diabetes mellitus Code(s): E11.22 - TYPE 2 DIABETES MELLITUS W DIABETIC CHRONIC KIDNEY DISEASE N18.6 - END STAGE RENAL DISEASE Z99.2 - DEPENDENCE ON RENAL DIALYSIS Assessment/Plan 08/21/2015 P-Myoview: No ischemia, LVEF 60% 12/15/2016 Echo: Normal LV size and fxn, mild-mod MR 1. Atypical chest pain syndrome (musculoskeletal pain) 2. Dyspnea referable to acute on chronic diastolic failure, r/o CAD 2. Hypertensive urgency 3. Hyperlipidemia 4. Insulin-dependent Type 2 DM 5. Hyperthyroidism 6. ESRD on HD P:1. Ruled out for [place] 2. HD per renal 3. Persantine myoview r/o CAD, may be performed as outpatient 4. Increase Exforge 5/320 qd, Lipitor 20 qhs, Lasix 80 qd, increase carvedilol 12.5 bid as hemodynamics tolerate, ASA 81 qd
[2016-12-16] MEDS ORDERED: CARVEDILOL 6.25 MG TABLET (FP) PO ONE (10:38)
[2016-12-16] MEDS ORDERED: VALSARTAN 160 MG TABLET (UD) PO ONE (10:45)
[2016-12-16] MEDS: CARVEDILOL 12.5 MG TABLET (FP) PO SCH ×2 (11:04→21:43)
--- NOTE | 2016-12-16 11:09 | PN ---
Progress Note, Physician History of Present Illness: NO CP OR SOB INTERMITTENT BURNING SENSATION - Current Medication List Current Medications: Active Medications Amlodipine Besylate (Norvasc -) 5 mg PO DAILY [facility] Last Admin: 12/16/16 09:36 Dose: 5 mg Aspirin (Asa -) 81 mg PO DAILY [facility] Atorvastatin Calcium (Lipitor -) 20 mg PO HS [facility] Last Admin: 12/15/16 21:16 Dose: 20 mg Carvedilol (Coreg -) 12.5 mg PO BID [facility] Last Admin: 12/16/16 11:04 Dose: 12.5 mg Carvedilol (Coreg -) 6.25 mg PO ONCE ONE Stop: 12/16/16 10:39 Furosemide (Lasix -) 80 mg PO DAILY [facility] Last Admin: 12/15/16 13:11 Dose: 80 mg Pantoprazole Sodium (Protonix 40mg Ivpb (Pre-Docked)) 100 mls @ 200 mls/hr IVPB DAILY [facility] Last Admin: 12/15/16 17:51 Dose: 200 mls/hr Insulin Aspart (Novolog Vial Sliding Scale -) [address] [facility] PRN Reason: Protocol Last Admin: 12/16/16 06:15 Dose: Not Given Insulin Detemir (Levemir Vial) 15 units SQ [facility] Last Admin: 12/15/16 21:22 Dose: Not Given Methimazole (Tapazole -) 10 mg PO DAILY [facility] Last Admin: 12/15/16 13:11 Dose: 10 mg Paroxetine HCl (Paxil -) 10 mg PO DAILY [facility] Simethicone (Mylicon -) 80 mg PO Q4H PRN PRN Reason: GAS Valsartan (Diovan -) 320 mg PO DAILY [facility] - Objective Vital Signs: Vital Signs Temperature 97.8 F 12/16/16 06:00 Pulse Rate 68 12/16/16 09:40 Respiratory Rate 18 12/16/16 09:40 Blood Pressure 209/96 12/16/16 09:40 O2 Sat by Pulse Oximetry (%) 97 12/15/16 21:00 Cardiovascular: Yes: Regular Rate and Rhythm Respiratory: Yes: Regular, CTA Bilaterally Gastrointestinal: Yes: Normal Bowel Sounds, Soft Problem List - Problems (1) Chest pain Assessment/Plan: CARDIO NOTED--FOR ECHO AND STRESS TEST Code(s): R07.9 - CHEST PAIN, UNSPECIFIED Qualifiers: Chest pain type: precordial pain Qualified Code(s): R07.2 - Precordial pain (2) End stage renal disease on dialysis due to type 2 diabetes mellitus Assessment/Plan: DIALYSIS PER RENAL GETTING DIALYSIS NOW Code(s): E11.22 - TYPE 2 DIABETES MELLITUS W DIABETIC CHRONIC KIDNEY DISEASE N18.6 - END STAGE RENAL DISEASE Z99.2 - DEPENDENCE ON RENAL DIALYSIS (3) Hyperlipidemia associated with type 2 diabetes mellitus Assessment/Plan: ON LIPITOR Code(s): E11.69 - TYPE 2 DIABETES MELLITUS WITH OTHER SPECIFIED COMPLICATION E78.5 - HYPERLIPIDEMIA, UNSPECIFIED (4) Hypertensive cardiomyopathy Assessment/Plan: ECHO Code(s): I11.9 - HYPERTENSIVE HEART DISEASE WITHOUT HEART FAILURE I43 - CARDIOMYOPATHY IN DISEASES CLASSIFIED ELSEWHERE Qualifiers: Heart failure presence: with heart failure Qualified Code(s): I11.0 - Hypertensive heart disease with heart failure; I43 - Cardiomyopathy in diseases classified elsewhere (5) Type 2 diabetes mellitus Assessment/Plan: MONITOR Code(s): E11.9 - TYPE 2 DIABETES MELLITUS WITHOUT COMPLICATIONS Qualifiers: Diabetes mellitus complication status: with kidney complications Diabetes mellitus meterman insulin use: with prison use Chronic kidney disease stage: on chronic dialysis
[2016-12-16] MEDS: SIMETHICONE 80 MG TAB.CHEW (FP) PO PRN ×2 (12:11→18:49)
[2016-12-16] MEDS: PANTOPRAZOLE SODIUM 100 ML IVPB SCH (12:12)
[2016-12-16] MEDS: FUROSEMIDE 40 MG TABLET (FP) PO SCH (12:19)
[2016-12-16] MEDS: METHIMAZOLE 10 MG TABLET (FP) PO SCH (12:19)
[2016-12-16] MEDS: ASPIRIN 81 MG CHEWABLE TABLETS PO SCH (12:20)
--- NOTE | 2016-12-16 13:05 | CONS ---
PULMONARY CONSULTATION DATE OF CONSULTATION: 12/16/2016 REFERRING PHYSICIAN: Harjit Meeks MD The patient is a 66-year-old black female with past medical history of hyperlipidemia, hypertension, end-stage renal disease on hemodialysis, diabetes, admitted to [facility] with a complaint of chest pain. The patient had dialysis. At the time, she started developing chest pain. The pain apparently was relieved approximately 20 minutes after cessation of dialysis and oxygen administration. She presented to the emergency room with the above. In the ER, the pain was completely resolved. Patient denied any nausea, vomiting, and diaphoresis. Denied any fevers and chills. She states that she had similar episodes in the past but not as severe. Describes the pain as a discomfort and states it occasionally occurs with movement as well as inspiration. She denies any fevers, chills. Denies any cough or hemoptysis. She has history of smoking, still smokes a few cigarettes, about 1/2 pack a day. There is no history of occupational exposure to chemicals or fumes in the past. Apparently, during the dialysis, she had some shortness of breath and an episode of hypotension. Patient was also noted on admission to have markedly elevated blood pressure in the 200 range. She was admitted to telemetry unit for further management. On admission, she was evaluated by as well as Dr. Block for cardiology consultation. PAST MEDICAL HISTORY: Again includes end-stage renal disease on hemodialysis, hypertension, hyperlipidemia, diabetes, questionable COPD. SOCIAL HISTORY: Again, a history of tobacco use, currently still smoking. Retired nurses' aide. CURRENT MEDICATIONS: Include Diovan, Paxil, Mylicon, Tapazole, Coreg, Norvasc, Lipitor, NovoLog, Levemir, Lasix, insulin, Protonix. REVIEW OF SYSTEMS: No orthopnea. No PND. Positive chest discomfort. Has mild shortness of breath. No fevers. No chills. No cough. No hemoptysis. No abdominal pain. PHYSICAL EXAMINATION: General: The patient is a well-developed black female, awake, alert, in no acute distress. Vital Signs: She is currently afebrile. Blood pressure is 209/96, respiratory rate is 18, and heart rate of 68. HEENT: Normocephalic, atraumatic. Neck: Supple. Heart: Regular S1, S2. Chest: Clear. Chest Wall: Of note is the patient's chest pain is reproducible on palpation of the left anterior chest wall. Abdomen: Soft. Bowel sounds are positive. Extremities: No cyanosis or edema. LABORATORY DATA: WBC is 5.9, hemoglobin 11.3, hematocrit 34.1 with platelet count of 123,000. BUN is 67, creatinine 10.6. CK is 76. Troponin 0.02. Chest x-ray revealed mild pulmonary vascular congestion. IMPRESSION: 1. Hypertensive urgency. 2. Chest pain, reproducible. 3. End-stage renal disease on hemodialysis. 4. Diabetes. 5. Likely underlying chronic obstructive pulmonary disease. 6. Smoker. PLAN: Continue hemodialysis as per Renal, analgesics, supplemental O2 p.r.n., blood pressure control. Also, strongly advised smoking cessation. Also, CAT scan of the chest. CHERYLE ISAACS M.D. [id number]
--- NOTE | 2016-12-16 14:49 | PN ---
Progress Note, Physician History of Present Illness: Pt seen and examined at bedside. She is awake and alert. She tolerated HD. - Current Medication List Current Medications: Active Medications Amlodipine Besylate (Norvasc -) 5 mg PO DAILY [facility] Last Admin: 12/16/16 09:36 Dose: 5 mg Aspirin (Asa -) 81 mg PO DAILY [facility] Last Admin: 12/16/16 12:20 Dose: 81 mg Atorvastatin Calcium (Lipitor -) 20 mg PO HS [facility] Last Admin: 12/15/16 21:16 Dose: 20 mg Carvedilol (Coreg -) 12.5 mg PO BID [facility] Last Admin: 12/16/16 11:04 Dose: 12.5 mg Furosemide (Lasix -) 80 mg PO DAILY [facility] Last Admin: 12/16/16 12:19 Dose: 80 mg Pantoprazole Sodium (Protonix 40mg Ivpb (Pre-Docked)) 100 mls @ 200 mls/hr IVPB DAILY [facility] Last Admin: 12/16/16 12:12 Dose: 200 mls/hr Insulin Aspart (Novolog Vial Sliding Scale -) 1 vial SQ [facility] PRN Reason: Protocol Last Admin: 12/16/16 12:19 Dose: 2 units Insulin Detemir (Levemir Vial) 15 units SQ HS [facility] Last Admin: 12/15/16 21:22 Dose: Not Given Methimazole (Tapazole -) 10 mg PO DAILY [facility] Last Admin: 12/16/16 12:19 Dose: 10 mg Paroxetine HCl (Paxil -) 10 mg PO DAILY [facility] Simethicone (Mylicon -) 80 mg PO Q4H PRN PRN Reason: GAS Last Admin: 12/16/16 12:11 Dose: 80 mg Valsartan (Diovan -) 320 mg PO DAILY [facility] - Objective Vital Signs: Vital Signs Temperature 97.8 F 12/16/16 06:00 Pulse Rate 70 12/16/16 11:30 Respiratory Rate 18 12/16/16 11:30 Blood Pressure 230/99 12/16/16 11:30 O2 Sat by Pulse Oximetry (%) 97 12/15/16 21:00 Constitutional: Yes: Calm Eyes: Yes: Conjunctiva Clear HENT: Yes: Atraumatic Neck: Yes: Supple Cardiovascular: Yes: S1, S2 Respiratory: Yes: CTA Bilaterally Gastrointestinal: Yes: WNL Genitourinary: Yes: WNL Musculoskeletal: Yes: WNL Edema: Yes Edema: LLE: Trace, RLE: Trace Neurological: Yes: Oriented Psychiatric: Yes: Oriented Problem List - Problems (1) End stage renal disease on dialysis due to type 2 diabetes mellitus Code(s): E11.22 - TYPE 2 DIABETES MELLITUS W DIABETIC CHRONIC KIDNEY DISEASE N18.6 - END STAGE RENAL DISEASE Z99.2 - DEPENDENCE ON RENAL DIALYSIS (2) HTN (hypertension) Code(s): I10 - ESSENTIAL (PRIMARY) HYPERTENSION Qualifiers: Hypertension type: essential hypertension Qualified Code(s): I10 - Essential (primary) hypertension Assessment/Plan Current Medications Generic Name Dose Route Start Last Admin Trade Name Freq PRN Reason Stop Dose Admin Amlodipine Besylate 5 mg 12/15/16 12:00 12/16/16 09:36 Norvasc - PO 5 mg DAILY ANDRÉS Administration Aspirin 81 mg 12/16/16 10:00 12/16/16 12:20 Asa - PO 81 mg DAILY ANDRÉS Administration Atorvastatin Calcium 20 mg 12/15/16 22:00 12/15/16 21:16 Lipitor - PO 20 mg HS ANDRÉS Administration Carvedilol 12.5 mg 12/16/16 10:45 12/16/16 11:04 Coreg - PO 12.5 mg BID ANDRÉS Administration Furosemide 80 mg 12/15/16 12:00 12/16/16 12:19 Lasix - PO 80 mg DAILY ANDRÉS Administration Pantoprazole Sodium 100 mls @ 200 mls/hr 12/15/16 16:00 12/16/16 12:12 Protonix 40mg Ivpb (Pre-Docked) IVPB 200 mls/hr DAILY ANDRÉS Administration Insulin Aspart 1 vial 12/15/16 16:30 12/16/16 12:19 Novolog Vial Sliding Scale - SQ 2 units ACHS ANDRÉS Administration Protocol Insulin Detemir 15 units 12/15/16 22:00 12/15/16 21:22 Levemir Vial SQ Not Given HS ANDRÉS Methimazole 10 mg 12/15/16 12:00 12/16/16 12:19 Tapazole - PO 10 mg DAILY ANDRÉS Administration Paroxetine HCl 10 mg 12/16/16 10:00 Paxil - PO DAILY ANDRÉS Simethicone 80 mg 12/15/16 15:44 12/16/16 12:11 Mylicon - PO 80 mg Q4H PRN Administration GAS Valsartan 320 mg 12/17/16 10:00 Diovan - PO DAILY ANDRÉS Impression 1. ESRD 2. chest pain 3. DM 4. HTN uncontrolled 5. hyperlipidemia Plan - HD today, pt tolerated - repeat blood pressure is systolic - cont current meds and monitor blood pressure - coreg dose increased - unclear why pt was hypotensive yesterday in dialysis - will follow Dr Butt
[2016-12-16] MEDS: ATORVASTATIN CA 20 MG TABLET (FP) PO SCH (21:43)
[2016-12-16] MEDS: INSULIN DETEMIR 100 UNITS/ML MDV SQ SCH (21:52)
[2016-12-17] MEDS: SIMETHICONE 80 MG TAB.CHEW (FP) PO PRN (04:00)
[2016-12-17] MEDS: INSULIN SLIDING SCALE (NOVOLOG) 1 VIAL SQ SCH ×2 (06:31→11:24)
[2016-12-17 07:55] VITALS: BP 177/83; PULSE 71; TEMP 98.4
[2016-12-17] MEDS ORDERED: PT OWN MED DRAWER 7, Y5N ONE (08:47)
[2016-12-17] MEDS: PARoxetine HCL 10 MG TABLET (FP) PO SCH (09:01)
[2016-12-17] MEDS: FUROSEMIDE 40 MG TABLET (FP) PO SCH (09:01)
[2016-12-17] MEDS: PANTOPRAZOLE SODIUM 100 ML IVPB SCH (09:02)
[2016-12-17] MEDS: amLODIPine BESYLATE 5 MG TABLET (FP) PO SCH (09:02)
[2016-12-17] MEDS: METHIMAZOLE 10 MG TABLET (FP) PO SCH (09:02)
[2016-12-17] MEDS: ASPIRIN 81 MG CHEWABLE TABLETS PO SCH (09:02)
[2016-12-17] MEDS: CARVEDILOL 12.5 MG TABLET (FP) PO SCH (09:02)
[2016-12-17] MEDS ORDERED: VALSARTAN 160 MG TABLET (UD) PO SCH (10:00)
--- NOTE | 2016-12-17 10:15 | PN ---
Progress Note, Physician History of Present Illness: Reports left sided reproducible chest wall tenderness improved, denies dyspnea, BP remains elevated, meds uptitrated. - Current Medication List Current Medications: Active Medications Amlodipine Besylate (Norvasc -) 5 mg PO DAILY [facility] Last Admin: 12/17/16 09:02 Dose: 5 mg Aspirin (Asa -) 81 mg PO DAILY [facility] Last Admin: 12/17/16 09:02 Dose: 81 mg Atorvastatin Calcium (Lipitor -) 20 mg PO HS [facility] Last Admin: 12/16/16 21:43 Dose: 20 mg Carvedilol (Coreg -) 12.5 mg PO BID [facility] Last Admin: 12/17/16 09:02 Dose: 12.5 mg Furosemide (Lasix -) 80 mg PO DAILY [facility] Last Admin: 12/17/16 09:01 Dose: 80 mg Pantoprazole Sodium (Protonix 40mg Ivpb (Pre-Docked)) 100 mls @ 200 mls/hr IVPB DAILY [facility] Last Admin: 12/17/16 09:02 Dose: Not Given Insulin Aspart (Novolog Vial Sliding Scale -) 1 vial SQ [facility] PRN Reason: Protocol Last Admin: 12/17/16 06:31 Dose: 2 units Insulin Detemir (Levemir Vial) 15 units SQ HS [facility] Last Admin: 12/16/16 21:52 Dose: Not Given Methimazole (Tapazole -) 10 mg PO DAILY [facility] Last Admin: 12/17/16 09:02 Dose: 10 mg Paroxetine HCl (Paxil -) 10 mg PO DAILY [facility] Last Admin: 12/17/16 09:01 Dose: 10 mg Simethicone (Mylicon -) 80 mg PO Q4H PRN PRN Reason: GAS Last Admin: 12/17/16 04:00 Dose: 80 mg Valsartan (Diovan -) 320 mg PO DAILY [facility] Last Admin: 12/17/16 09:01 Dose: 320 mg - Objective Vital Signs: Vital Signs Temperature 98.4 F 12/17/16 07:52 Pulse Rate 71 12/17/16 07:52 Respiratory Rate 20 12/17/16 07:55 Blood Pressure 177/83 12/17/16 07:52 O2 Sat by Pulse Oximetry (%) 96 12/17/16 07:55 Constitutional: Yes: No Distress, Calm Neck: Yes: Supple Cardiovascular: Yes: Regular Rate and Rhythm Respiratory: Yes: Regular, CTA Bilaterally Gastrointestinal: Yes: Normal Bowel Sounds, Soft Edema: No Problem List - Problems (1) Chest pain Code(s): R07.9 - CHEST PAIN, UNSPECIFIED Qualifiers: Chest pain type: precordial pain Qualified Code(s): R07.2 - Precordial pain (2) Hypertensive urgency Code(s): I16.0 - HYPERTENSIVE URGENCY (3) Hypertensive cardiomyopathy Code(s): I11.9 - HYPERTENSIVE HEART DISEASE WITHOUT HEART FAILURE I43 - CARDIOMYOPATHY IN DISEASES CLASSIFIED ELSEWHERE Qualifiers: Heart failure presence: with heart failure Qualified Code(s): I11.0 - Hypertensive heart disease with heart failure; I43 - Cardiomyopathy in diseases classified elsewhere (4) Hyperlipidemia associated with type 2 diabetes mellitus Code(s): E11.69 - TYPE 2 DIABETES MELLITUS WITH OTHER SPECIFIED COMPLICATION E78.5 - HYPERLIPIDEMIA, UNSPECIFIED (5) Type 2 diabetes mellitus Code(s): E11.9 - TYPE 2 DIABETES MELLITUS WITHOUT COMPLICATIONS Qualifiers: Diabetes mellitus complication status: with kidney complications 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 Atypical chest pain syndrome (musculoskeletal pain) 2. Dyspnea referable to acute on chronic diastolic failure, r/o CAD 2. Hypertensive urgency 3. Hyperlipidemia 4. Insulin-dependent Type 2 DM 5. Hyperthyroidism 6. ESRD on HD P:1. Ruled out for DC 2. HD per renal 3. Persantine myoview r/o CAD, may be performed as outpatient 4. Continue Exforge 5/320 qd, Lipitor 20 qhs, Lasix 80 qd, carvedilol 12.5 bid with uptitration as hemodynamics tolerate, ASA 81 qd 5. D/c planning with f/u in office
[2016-12-17] MEDS ORDERED: PANTOPRAZOLE 40 MG TABLET (FP) PO SCH (11:30)
--- NOTE | 2016-12-17 11:32 | DS ---
Physical Examination Vital Signs: Vital Signs Temperature 98.4 F 12/17/16 07:52 Pulse Rate 71 12/17/16 07:52 Respiratory Rate 20 12/17/16 07:55 Blood Pressure 177/83 12/17/16 07:52 O2 Sat by Pulse Oximetry (%) 96 12/17/16 07:55 Findings/Remarks: AWAKE ALERT, CARDIOLOGY NOTES REVIEWED OUTPATIENT STRESS TEST Constitutional: Yes: No Distress Eyes: Yes: WNL HENT: Yes: WNL Neck: Yes: WNL Cardiovascular: Yes: WNL Respiratory: Yes: WNL Gastrointestinal: Yes: WNL Renal/: Yes: WNL Musculoskeletal: Yes: Muscle Pain, Muscle Weakness Extremities: Yes: WNL Edema: No Peripheral Pulses WNL: Yes Integumentary: Yes: WNL Wound/Incision: Yes: Clean/Dry Neurological: Yes: WNL ...Motor Strength: WNL Discharge Summary Reason For Visit: CHEST PAIN,ESRD Current Active Problems Chest pain (Acute) End stage renal disease on dialysis due to type 2 diabetes mellitus (Acute) HTN (hypertension) (Acute) Hyperlipidemia associated with type 2 diabetes mellitus (Acute) Hypertensive cardiomyopathy (Acute) Hypertensive urgency (Acute) Hyperthyroidism (Acute) Tobacco abuse (Acute) Tobacco abuse counseling (Acute) Type 2 diabetes mellitus (Acute) Procedures: Principal: LABS/ECHO Hospital Course: CARDIOLOGY WORKUP NO ACUTE CHANGES AT THIS TIME, WILL NEED OUTPATIENT STRESS TEST PER DR GAINES, F/U 1-2 WEEKS, RETURN TO ED IOF CHEST PAIN CONTINUES. Condition: Stable - Instructions Diet, Activity, Other Instructions: LOW SODIUM/ADA Disposition: HOME - Home Medications Comprehensive Discharge Medication List: Ambulatory Orders Atorvastatin Ca [Lipitor] 20 mg PO HS 12/15/16 Carvedilol [Coreg -] 6.25 mg PO BID 12/15/16 FA/Vit Bcomp,C/Zinc/Vitamin D3 [Dialyvite 800-Ultra D Tablet] 1 each PO DAILY Furosemide [Lasix] 80 mg PO DAILY 12/15/16 Insulin Glargine,Hum.rec.anlog [Lantus Solostar PEN -] 15 units SQ HS 12/15/16 Methimazole [Tapazole -] 10 mg PO DAILY 12/15/16 Paroxetine HCl [Paxil -] 10 mg PO DAILY 12/15/16 Amlodipine Besylate [Norvasc -] 5 mg PO DAILY #30 tablet 12/17/16 Aspirin [ASA -] 81 mg PO DAILY tab.chew 12/17/16 Atorvastatin Ca [Lipitor] 20 mg PO HS tablet 12/17/16 Carvedilol [Coreg -] 6.25 mg PO BID #60 tablet 12/17/16 Carvedilol [Coreg -] 12.5 mg PO BID #60 tablet 12/17/16 Furosemide [Lasix -] 80 mg PO DAILY tablet 12/17/16 Methimazole [Tapazole -] 10 mg PO DAILY tablet 12/17/16 Pantoprazole Sodium [Protonix -] 40 mg PO DAILY #30 tab 12/17/16 Paroxetine HCl [Paxil -] 10 mg PO DAILY tablet 12/17/16 Valsartan [Diovan] 320 mg PO DAILY #30 tablet 12/17/16
--- NOTE | 2016-12-17 12:52 | PN ---
Progress Note, Physician History of Present Illness: Pt seen and examined at bedside. She is awake and alert. She has no complaints. She is eager to go home. - Objective Vital Signs: Vital Signs Temperature 98.4 F 12/17/16 07:52 Pulse Rate 71 12/17/16 07:52 Respiratory Rate 20 12/17/16 07:55 Blood Pressure 177/83 12/17/16 07:52 O2 Sat by Pulse Oximetry (%) 96 12/17/16 07:55 Constitutional: Yes: Calm Eyes: Yes: Conjunctiva Clear HENT: Yes: Atraumatic Neck: Yes: Supple Cardiovascular: Yes: S1, S2 Respiratory: Yes: CTA Bilaterally Gastrointestinal: Yes: Normal Bowel Sounds, Soft Musculoskeletal: Yes: WNL Extremities: Yes: WNL Edema: Yes Neurological: Yes: Oriented Psychiatric: Yes: Oriented Problem List - Problems (1) End stage renal disease on dialysis due to type 2 diabetes mellitus Code(s): E11.22 - TYPE 2 DIABETES MELLITUS W DIABETIC CHRONIC KIDNEY DISEASE N18.6 - END STAGE RENAL DISEASE Z99.2 - DEPENDENCE ON RENAL DIALYSIS (2) HTN (hypertension) Code(s): I10 - ESSENTIAL (PRIMARY) HYPERTENSION Qualifiers: Hypertension type: essential hypertension Qualified Code(s): I10 - Essential (primary) hypertension Assessment/Plan Impression 1. ESRD 2. chest pain 3. DM 4. HTN uncontrolled 5. hyperlipidemia Plan - pt was dialyzed yesterday - she has HD set up as outpt - recommend better BP control however pt insists on going home and says her blood pressure is always high - recommend to monitor blood pressure closely and return to ER if elevated - will follow Dr Butt
[2016-12-18 14:13] LABS: HEP B SURFACE AB Reactive (.)
== END 2016-12-17 12:46 | disposition home or self-care (01) | DRG 291 ==
LOC: JER 06:54 → JERBED 09:57 → J4W 11:38
PROVIDERS: ADMIT Family Medicine; ATTEND Family Medicine
PROC: 5A1D60Z (ICD-10-PCS; principal; 2016-12-16)
DX: I13.2 Hypertensive heart and chronic kidney disease with heart failure and with stage 5 chronic kidney disease, or end stage renal disease (principal); N18.6 End stage renal disease; I50.33 Acute on chronic diastolic (congestive) heart failure; E11.22 Type 2 diabetes mellitus with diabetic chronic kidney disease; Z99.2 Dependence on renal dialysis; E78.5 Hyperlipidemia, unspecified; R07.89 Other chest pain; E05.90 Thyrotoxicosis, unspecified without thyrotoxic crisis or storm; F17.210 Nicotine dependence, cigarettes, uncomplicated; Z79.4 Long term (current) use of insulin
CPT/HCPCS: 36415; 71010-TC; 80053; 80061; 82550; 83036; 83605; 83721; 84443; 84484; 85025; 86704; 86706; 86708; 86803; 87340; 87522; 93005; 93010; 93306-TC; 99285-25; J0885

== ENCOUNTER → 2019-06-29 | Day surgery (SDC) | payer OTHER ==
[2019-06-29 13:06] LABS: CHOLESTEROL 147 mg/dL (50-200); HDL CHOLESTEROL 67 mg/dL (40-60); LDL CHOLESTEROL (ONLY SJRH) 53 mg/dL (5-100); TRIGLYCERIDES 141 mg/dL (0-150)
--- NOTE | 2019-06-30 15:41 | PATH ---
Cytology Non-Gynecological Report Patient Name: LIZETTE DE LA CRUZ [facility]. Rec. #: [id number] /Age/Gender: 1950 (Age: 69) / F Account: [id number] Location: RADIOLOGY INTER Taken: 06/29/2019 Received: 06/29/2019 Reported: 06/30/2019 Physicians: Silvia Lott M.D. Specimen(s) Received RIGHT THYROID FNA Clinical History Right, 3.1 x 1.8 x 3.0 cm Final Diagnosis THYROID, RIGHT, FINE NEEDLE ASPIRATION: SATISFACTORY FOR EVALUATION. BETHESDA CLASS II: BENIGN. CYTOLOGIC FINDINGS ARE CONSISTENT WITH A BENIGN FOLLICULAR NODULE WITH CYSTIC CHANGE. SMALL FOLLICULAR CELLS, MACROPHAGES, AND ABUNDANT COLLOID PRESENT. Electronically Signed Debbie Johnson M.D. Gross Description Received are eight direct smears, four of which are air-dried and Diff-Quik stained, and four of which are alcohol fixed and Pap stained. Also received is 20 ml of bloody formalin from which one cellblock is prepared.
[2019-07-01 07:06] LABS: THYROID STIM IMMUNOGLOBULIN <0.10 IU/L (0.00-0.55)
== END | disposition home or self-care (01) ==
LOC: JRADIR 09:54
PROVIDERS: ATTEND Internal Medicine Endocrinology, Diabetes & Metabolism
PROC: 0G9H3ZX Drainage of Right Thyroid Gland Lobe, Percutaneous Approach, Diagnostic (ICD-10-PCS; principal; 2019-06-29)
DX: E04.1 Nontoxic single thyroid nodule (principal)
CPT/HCPCS: 36415; 76942; 80061; 83036; 83721; 84439; 84443; 84445; 84479; 84481; 86376

== ENCOUNTER 2022-05-28 11:56 | Emergency (ER) | payer OTHER ==
[2022-05-28 12:23] VITALS: BMI 25.4
[2022-05-28 13:53] VITALS: RESP 18
[2022-05-28 14:27] LABS: BASO % 1.2 % (0-2.0); HEMATOCRIT 32.6 % (32.4-45.2); HEMOGLOBIN 10.4 GM/dL (10.7-15.3); LYMPH % 20.5 % (8-40); MEAN CELL VOLUME 90.8 fl (80-96); MEAN PLT VOLUME 7.9 fl (7.5-11.1); MONO % 8.3 % (3.8-10.2); PLATELET COUNT 129 10^3/uL (134-434); RBC 3.59 M/mm3 (3.60-5.2); RDW 15.5 % (11.6-15.6); WHITE BLOOD COUNT 5.2 K/mm3 (4.0-10.0)
[2022-05-28 14:39] LABS: INR 1.04 (0.83-1.09)
[2022-05-28 14:49] LABS: CALCIUM 9.2 mg/dL (8.5-10.1)
[2022-05-28 14:50] LABS: ALBUMIN 3.7 g/dl (3.4-5.0); BLOOD UREA NITROGEN 30.8 mg/dL (7-18)
[2022-05-28 14:53] LABS: CREATININE 5.2 mg/dL (0.55-1.3)
[2022-05-28 14:54] LABS: BILIRUBIN,TOTAL 0.3 mg/dL (0.2-1)
[2022-05-28 14:55] LABS: TOT PROT 7.4 g/dl (6.4-8.2)
[2022-05-28] MEDS ORDERED: CARVEDILOL 6.25 MG TABLET (FP) PO ONE (15:48)
[2022-05-28] MEDS ORDERED: VALSARTAN 160 MG TABLET PO ONE (15:48)
[2022-05-28] MEDS ORDERED: amLODIPine BESYLATE 10 MG TABLET (FP) PO ONE (15:48)
[2022-05-28] MEDS ORDERED: VALSARTAN 80 MG TABLET ONE (15:59)
[2022-05-28] MEDS ORDERED: amLODIPine BESYLATE 10 MG TABLET (FP) ONE (15:59)
[2022-05-28] MEDS ORDERED: CARVEDILOL 6.25 MG TABLET (FP) ONE (16:00)
[2022-05-28 17:08] VITALS: PULSE 69
[2022-05-28 17:55] VITALS: BP 209/65; TEMP 98
== END 2022-05-28 18:03 | disposition home or self-care (01) ==
LOC: JER 11:56
DX: T82.838A Hemorrhage due to vascular prosthetic devices, implants and grafts, initial encounter (principal)
CPT/HCPCS: 36415; 80053; 85025; 85610; 86850; 86900; 86901; 87040; 99283-25; C9803-CS; U0003; U0005